=== PATIENT | female | born 1985 | race African-American/Black ===

== ENCOUNTER 2018-09-05 11:35 | Emergency (ER) | payer MEDICAID ==
[~2018-09-05] VITALS: Ht 175.3 cm; Wt 86.2 kg
[2018-09-05 11:47] VITALS: BP 142/87
== END 2018-09-05 13:20 | disposition home or self-care (01) ==
LOC: ER 11:35
DX: S63.502A Unspecified sprain of left wrist, initial encounter (principal); S93.402A Sprain of unspecified ligament of left ankle, initial encounter; W18.11XA Fall from or off toilet without subsequent striking against object, initial encounter; Y93.E1 Activity, personal bathing and showering; Y92.091 Bathroom in other non-institutional residence as the place of occurrence of the external cause; Y99.8 Other external cause status
CPT/HCPCS: 29125; 73110; 73610